=== PATIENT | female | born 1945 | race Caucasian/White ===

== ENCOUNTER 2018-09-10 10:38 | Inpatient (IN) | payer OTHER ==
[~2018-09-10] VITALS: Ht 160 cm; Wt 70.3 kg
[2018-09-10] VITALS (10 sets, daily range): BP systolic 132–148; BP diastolic 67–79
[2018-09-10 14:02] LABS: HEMATOCRIT 38.1 % (37.0-47.0); HEMOGLOBIN 12.8 gm/dL (12.0-15.0); MCH 31.5 pg (26.0-34.0); MCHC 33.6 g/dL (28.0-37.0); MCV 93.7 fL (80.0-100.0); RBC 4.07 mil/uL (4.20-5.00); RDW 12.9 % (10.5-14.5); WBC 5.4 thou/uL (4.0-11.0)
[2018-09-10 14:05] LABS: CALCIUM 8.9 mg/dL (8.5-10.1); CREATININE 0.6 mg/dL (0.6-1.0); MAGNESIUM 1.7 mg/dL (1.8-2.4); POTASSIUM 3.1 mmol/L (3.5-5.1)
[2018-09-10 14:42] LABS: TSH 1.711 uIU/mL (0.358-3.740)
[2018-09-10] MEDS ORDERED: LIPITOR 20 MG T20 M1 PO (21:57)
[2018-09-10] MEDS ORDERED: VERAPAMIL E.R240 M1 PO (21:57)
[2018-09-10] MEDS ORDERED: UNICOMPLEX M TA1 TA1 PO (21:58)
[2018-09-10] MEDS ORDERED: VITAMIN D1000 UNI1 PO (21:59)
[2018-09-10] MEDS ORDERED: VITAMIN E400 UNIT PO (21:59)
[2018-09-10] MEDS ORDERED: GLUCOSAMINE HC500 MG PO (22:00)
[2018-09-11 00:45] VITALS: BP 141/67
[2018-09-11 01:45] VITALS: BP 153/69
[2018-09-11 05:30] VITALS: BP 166/79
[2018-09-11 06:00] LABS: HEMATOCRIT 34.5 % (37.0-47.0); HEMOGLOBIN 11.7 gm/dL (12.0-15.0); MCH 31.8 pg (26.0-34.0); MCV 93.5 fL (80.0-100.0); RBC 3.7 mil/uL (4.20-5.00); RDW 13.1 % (10.5-14.5); WBC 7.7 thou/uL (4.0-11.0)
[2018-09-11 06:11] LABS: ALBUMIN 2.1 g/dL (3.4-5.0); CREATININE 0.6 mg/dL (0.6-1.0); POTASSIUM 3.3 mmol/L (3.5-5.1); TOTAL BILIRUBIN 0.2 mg/dL (<0.1-1.0); TOTAL PROTEIN 5.5 g/dL (6.4-8.2)
[2018-09-11 07:33] VITALS: BP 166/81
[2018-09-11 09:18] LABS: URINE BILIRUBIN NEGATIVE (Negative); URINE BLOOD NEGATIVE (Negative); URINE CLARITY CLEAR; URINE COLOR YELLOW; URINE GLUCOSE-RANDOM* 2+ (Negative); URINE KETONES 3+ (Negative); URINE LEUKOCYTES NEGATIVE (Negative); URINE NITRITE NEGATIVE (Negative); URINE PROTEIN (DIPSTICK) NEGATIVE (Negative); URINE SPECIFIC GRAVITY 1.025 (1.005-1.035); URINE UROBILINOGEN 0.2 E.U./dl (0.2-1.0)
[2018-09-11 20:20] VITALS: BP 140/73
[2018-09-12 03:59] VITALS: BP 145/80
[2018-09-12 06:49] LABS: ALBUMIN 2.1 g/dL (3.4-5.0); CALCIUM 7.8 mg/dL (8.5-10.1); CREATININE 0.5 mg/dL (0.6-1.0); PHOSPHORUS 1.1 mg/dL (2.5-4.9)
[2018-09-12 07:14] LABS: POTASSIUM 2.7 mmol/L (3.5-5.1)
[2018-09-12 07:40] VITALS: BP 140/76
[2018-09-12 15:45] VITALS: BP 155/60
[2018-09-12 22:16] VITALS: BP 147/79
[2018-09-13 02:24] VITALS: BP 167/88
[2018-09-13 06:46] LABS: ALBUMIN 1.9 g/dL (3.4-5.0); CALCIUM 7.5 mg/dL (8.5-10.1); CREATININE 0.5 mg/dL (0.6-1.0); PHOSPHORUS 2.6 mg/dL (2.5-4.9); POTASSIUM 3.4 mmol/L (3.5-5.1)
[2018-09-13 07:53] VITALS: BP 171/89
[2018-09-13] MEDS ORDERED: LEVAQUIN 500 M500 M2 PO (13:50)
[2018-09-13] MEDS ORDERED: HYDROCODONE-AP1 EAC6 PO (13:50)
[2018-09-13 14:35] VITALS: BP 171/89
[2018-09-13 15:39] VITALS: BP 171/89
== END 2018-09-13 15:25 | disposition home or self-care (01) | DRG 335 ==
LOC: 3W 10:38
PROVIDERS: Hospitalist; Surgery
DX: K56.50 Intestinal adhesions [bands], unspecified as to partial versus complete obstruction (principal); J18.9 Pneumonia, unspecified organism; E46 Unspecified protein-calorie malnutrition; T18.3XXA Foreign body in small intestine, initial encounter; I10 Essential (primary) hypertension; E78.5 Hyperlipidemia, unspecified; K57.30 Diverticulosis of large intestine without perforation or abscess without bleeding; E86.0 Dehydration; E87.6 Hypokalemia; E55.9 Vitamin D deficiency, unspecified; I25.10 Atherosclerotic heart disease of native coronary artery without angina pectoris; Z87.891 Personal history of nicotine dependence; Z68.27 Body mass index [BMI] 27.0-27.9, adult; Z90.49 Acquired absence of other specified parts of digestive tract; Z90.710 Acquired absence of both cervix and uterus; Z79.899 Other long term (current) drug therapy; Z80.0 Family history of malignant neoplasm of digestive organs; X58.XXXA Exposure to other specified factors, initial encounter; Y93.89 Activity, other specified; Y92.89 Other specified places as the place of occurrence of the external cause; Y99.8 Other external cause status
CPT/HCPCS: 10779; 50010; 50101; 50249; 50386; 50525; 50555; 50962; 51435; 51489; 51708; 51712; 52265; 53307; 53310; 54022; 54118; 56462; 56524; 56526; 56530; 57092; 62110; 62900; 65002; 65135; 70005